=== PATIENT | male | born 1950 | race Caucasian/White ===

== ENCOUNTER 2020-01-21 16:01 | Emergency (ER) | payer OTHER, MEDICARE, MEDICAID, SELFPAY ==
[2020-01-21] VITALS (9 sets, daily range): BP systolic 102–124; BP diastolic 57–68; PULSE 90–105; RESP 16–22; TEMP 36.3–37.2; O2SAT 93–96; BMI 41.4
--- NOTE | 2020-01-21 16:12 | PC.NURSE ---
This RN calling [facility], speaking with Lopez RN, Pt was sent for increased aggitation. Pt is ambulatory, walking into other resident's room and becoming violent when asked to leave. Seroquel/Ativan are new as of 2 weeks ago. Does take meds when asked, whole pills. On hospice for worsening CKD and cardiomyopathy. Hospice suggested sending pt to ED.
--- NOTE | 2020-01-21 16:22 | ED.GENADULT ---
HPI - General Adult General Chief complaint: General Medical Stated complaint: SECTION 12,AGGRESSIVE AND COMBATIVE WITH STAFF Time Seen by Provider: 01/21/20 16:22 Source: EMS Mode of arrival: EMS Limitations: altered mental status History of Present Illness HPI narrative: This is a 69-year-old male who is primarily Turkish-speaking mostly is to gather from the transfer paperwork from the nursing facility he is currently at the [facility] where he is a resident there on hospice care he has a medical history that is significant for chronic kidney disease stage 3, ischemic cardiomyopathy with EF of 10-15%, end-stage heart failure, atrial fibrillation, protein caloric malnutrition, adult failure to thrive, asthma, insomnia, degenerative disc disease, anxiety and depressive disorder, gastroesophageal reflux disease, and has any imbedded pacemaker who was apparently admitted to this facility on 12/27/2019 and at that facility he has been aggressive and combative apparently hitting staff and making exit seeking behaviors he was started on Seroquel and Ativan however this has not been affective for his behavior again he is on hospice care he has a most form that says 1. Do not resuscitate 2. Do not intubate 3. Do not use invasive ventilation 4. Do not transfer to hospital. Section F; patient preference no dialysis, no artificial nutrition, no artificial hydration. In review of the notes it appears that again patient has been started on Seroquel and Ativan a week ago or so however this has been not effective for his behavior and his continued with this exit seeking behavior and aggression. He does have a healthcare proxy his name is Robb and this is his son his phone number is listed as [phone] Related Data Allergies Allergy/AdvReac Type Severity Reaction Status Date / Time diltiazem [From CARDIZEM] Allergy Unknown ANAPHYLAXIS Verified 01/21/20 16:32 Review of Systems Review of Systems: Yes Unobtainable due to mental condition Neurologic: Reports confusion Psychiatric: Psychiatric: Reports confusion PMFSH Past Medical History Medical History (Updated 01/21/20 @ 19:47 by Kilo Paz NP) Anxiety Asthma Atrial fibrillation Cardiac defibrillator in place CKD (chronic kidney disease) Depression End stage heart failure Failure to thrive GERD (gastroesophageal reflux disease) Ischemic cardiomyopathy Social History Social History Advance Directives: No Advance Directives Information Provided: Yes Physical Exam Vital Signs: Vital Signs: Last Vital Signs Temp 97.3 F 01/21/20 16:32 Pulse 95 01/21/20 16:32 Resp 16 01/21/20 16:32 BP 102/68 01/21/20 16:32 Pulse Ox 94 01/21/20 16:32 Body Mass Index 41.4 Reviewed Const: General: comfortable and confusion Nutritional Appearance: cachectic Orientation/consciousness: confusion HENMT: Head: Yes normal to inspection Ears: hearing grossly normal bilaterally Eyes: General: appearance normal, both eyes and all related structures Visual Mansfield: normal visual mansfield by confrontation Neck: Neck: Yes normal visual inspection and No tender Thyroid: Thyroid normal Chest: Chest palpation & inspection: normal inspection of the chest Resp: Effort & Inspection: normal respiratory effort Auscultation: clear to auscultation bilaterally Cardio: Jugular venous distension: no JVD Rhythm: regular rhythm GI: Inspection: Yes normal to inspection Percussion: Yes normal to percussion Auscultation: normal bowel sounds : General: Yes no CVA tenderness Back/Spine/Pelvis: Back: no CVA tenderness Skin: General skin exam: no rashes or lesions noted Neuro: General: confusion Extrem: General: Yes normal to inspection Course Course Course Narrative: [id number] RN spoke to nursing facility I attempted to call the healthcare proxy son ujan m own at the above-listed number no answer left voicemail to return call will attempt again. In the meantime I will consult the provider team at the facility given that the patient is incompetent to make his own decision and there is a clear which list here on the most form. Reevaluation(s) Reevaluation #1: Attempted to call the son twice again removed did not answer his phone left voicemail I spoke to the RN by the name adriano Rahman He reports to me that pt was started on Ativan 1 mg q.2 hours p.r.n. Hold all 2 mg scheduled q.4 hours Seroquel 100 mg at bedtime and 24 mg q.6 hours p.r.n. Family not too active in care, In fact has not been there since pt arrived Furthermore I spoke to Kyra Rutherford and phone number [phone] agreeable that this is relatively difficult that he is on hospice care and goal of care ultimately is to get occasion comfortable and control his behavior do not expect patient meeting inpatient level care for psychiatric stabilization given that there could be underlying organic cause but given his status workup will be deferred. Agreeable they would take the patient back if medication consultation is done with psychiatry team. Consultations Consultation #1: Case discussed with psychiatry Dr. Haddad in detail agreeable given his end of life plan/ goal of care that the alternate plan is to get the patient comfortable and control behavior and does not feel as I do that patient meets level care for psychiatric hospitalization. Recommendation regarding medication is to have patient take Holdol 2 mg po 3 times a day scheduled Holdol 6 mg po Q6 hours PRN for agitation Seroquel 100 mg p.o. at bedtime Seroquel 50 mg p.o. q.6 hours p.r.n. for agitation lorazepam 1 mg p.o. q 4 hours PRN for agitation Consultation #2: JJ Rutherford made aware of psychiatry recommendations agreeable to take the patient back. Discharge Plan Discharge Clinical Impression: Restlessness and agitation Patient Disposition: er [facility] Additional Instructions: Medication recommendations Holdol 2 mg po 3 times a day scheduled Holdol 6 mg po Q6 hours PRN for agitation Seroquel 100 mg p.o. at bedtime Seroquel 50 mg p.o. q.6 hours p.r.n. for agitation lorazepam 1 mg p.o. q 4 hours PRN for agitation Referrals: Thompson Christianson MD [Primary Care Provider] - 2 days
--- NOTE | 2020-01-21 16:39 | PC.NURSE ---
Pt is confused, unable to answer simple questions, frequently redirected back into bed. sitter at bedside.
--- NOTE | 2020-01-21 17:41 | PC.NURSE ---
increasingly aggitated and difficult to redirect at times
[2020-01-21] MEDS: Haloperidol Lactate 5 MG/ML VIAL IM (17:52)
--- NOTE | 2020-01-21 18:22 | PC.NURSE ---
late entry for 1751. pt becoming increasinly difficult to redirect safely to bed, attempting to climb out of bed despite verbal and physical prompts and consistent sitter. refused [po ativan then im haldol administered.
--- NOTE | 2020-01-21 19:07 | PC.NURSE ---
Remains awake but easy to redirect. Difficult to understand. SKin pwd. Will return to facility.
[2020-01-21] MEDS: LORazepam 2 MG/ML VIAL IM (19:15)
--- NOTE | 2020-01-21 19:37 | PC.NURSE ---
Late entry. 191 pt becoming very aggitated, swinging at staff and unable to be redirected, language interpreter present. pt saying nonsensicle things. ativan im given to ensure safe transport to [facility]. finally resting, ems present and report given.
--- NOTE | 2020-01-21 19:49 | PC.NURSE ---
resting queitly. ems awaiting transport.
--- NOTE | 2020-01-21 20:18 | PC.NURSE ---
rn to alberto with Renate at [facility].
== END 2020-01-21 20:15 | disposition skilled nursing facility (03) ==
PROVIDERS: Emergency Provider Internal Medicine; PCP Family Medicine
DX: R45.1 Restlessness and agitation (principal); N18.6 End stage renal disease; Z79.899 Other long term (current) drug therapy
CPT/HCPCS: 96372; 99284; 99285; J2060